=== PATIENT | female | born 1975 | race American Indian/Alaskan Native ===

== ENCOUNTER 2018-01-19 20:47 | Emergency (ER) | payer OTHER ==
[2018-01-19] MEDS ORDERED: Sodium Chloride 0.9% 1,000 ML IV STA (21:29)
[2018-01-19] MEDS ORDERED: Morphine 4 mg/ml ISec IVP STA ×2 (21:29→23:55)
--- NOTE | 2018-01-19 21:37 | ED PDOC ---
Arrival/HPI - General Chief Complaint: Back Pain Time Seen by Provider: 01/19/18 21:10 Historian: Patient - History of Present Illness Narrative History of Present Illness (Text): 01/19/18 21:37 A 43 year old female presents to the emergency department complaining of RUQ abdominal pain. Patient also reports back pain. Reports pain starts from the back and radiates to the front. Patient notes she ate cabbage and corn beef tonight. Patient denies any other complaints at this time. Symptom Onset: Sudden Symptom Course: Unchanged Activities at Onset: Rest Context: Home Past Medical History - Provider Review Nursing Documentation Reviewed: Yes - Cardiac Hx Hypertension: Yes - Pulmonary Hx Asthma: Yes - Neurological Hx Seizures: Yes Other/Comment: anurism 10.27.17 - Endocrine/Metabolic Hx Hyperthyroidism: Yes - Psychiatric Hx Anxiety: Yes Hx Substance Use: No - Anesthesia Hx Anesthesia Reactions: No Hx Malignant Hyperthermia: No Family/Social History - Physician Review Nursing Documentation Reviewed: Yes Family/Social History: No Known Family HX Smoking Status: Light Smoker < 10 Cigarettes Daily Hx Alcohol Use: No Hx Substance Use: No Allergies/Home Meds Allergies/Adverse Reactions: Allergies aspirin Adverse Reaction (Verified 01/19/18 21:17) NAUSEA Review of Systems - Physician Review All systems were reviewed & negative as marked: Yes - Review of Systems Gastrointestinal: Abdominal Pain (RUQ) Musculoskeletal: Back Pain Physical Exam Vital Signs Reviewed: Yes Vital Signs Temp Pulse Resp BP Pulse Ox 01/20/18 00:33 98.5 F 72 18 133/73 100 Appearance: Positive for: Well-Appearing, Non-Toxic, Comfortable Pain Distress: None Mental Status: Positive for: Alert and Oriented X 3 - Systems Exam Head: Present: Atraumatic, Normocephalic Pupils: Present: PERRL Extroacular Muscles: Present: EOMI Conjunctiva: Present: Normal Mouth: Present: Moist Mucous Membranes Neck: Present: Normal Range of Motion Respiratory/Chest: Present: Clear to Auscultation, Good Air Exchange. No: Respiratory Distress, Accessory Muscle Use Cardiovascular: Present: Regular Rate and Rhythm, Normal S1, S2. No: Murmurs Abdomen: Present: Tenderness (RUQ), Normal Bowel Sounds. No: Distention, Peritoneal Signs Back: Present: Normal Inspection Upper Extremity: Present: Normal Inspection. No: Cyanosis, Edema Lower Extremity: Present: Normal Inspection. No: Edema Neurological: Present: GCS=15, CN II-XII Intact, Speech Normal Skin: Present: Warm, Dry, Normal Color. No: Rashes Psychiatric: Present: Alert, Oriented x 3, Normal Insight, Normal Concentration Medical Decision Making ED Course and Treatment: 01/19/18 21:36 Impression: A 43 year old female with RUQ abdominal pain. Differential Diagnosis included but are not limited to: r/o gallstone, kidney stones Plan: -- Ultrasound abdomen -- labs -- Urinalysis -- CT abd/pelvis -- Morphine, IV fluids, Toradol, Zofran -- Reassess and disposition Progress Notes: US Abdomen Complete FINDINGS: Liver: . No mass. No intrahepatic bile duct dilation. Gallbladder: Gallbladder wall 0.27 cm. No gallstones. Common bile duct: Common bile duct 4 mm. No stones. No dilation. Pancreas: Unremarkable as visualized. Kidneys: Right kidney 10 x 4.6 x 6 cm. Left kidney 9.3 x 5.2 x 5.3 cm. Left renal cyst measures 1.4 x 1.3 cm. No stones. No hydronephrosis. Spleen: Spleen measures 10 cm. No splenomegaly. Aorta: . No aneurysm. Inferior vena cava: Unremarkable.. IMPRESSION: No acute findings. Dictated and Authenticated by: Talia Jones MD 01/19/2018 11:58 PM Eastern Time ([place] & [place]) 01/20/18 03:50 CT Abdomen and Pelvis Without Intravenous Contrast FINDINGS: Lower thorax: Trace dependent atelectatic changes in the lungs. ABDOMEN: Liver: Unremarkable. Gallbladder and bile ducts: Unremarkable. No calcified stones. No ductal dilation. Pancreas: Unremarkable. No ductal dilation. Spleen: Unremarkable. No splenomegaly. Adrenals: Unremarkable. No mass. Kidneys and ureters: Small left kidney cyst. No obstructing stones. No hydronephrosis. Stomach and bowel: Unremarkable. No obstruction. No mucosal thickening. Appendix: Normal appendix. PELVIS: Bladder: Unremarkable. No stones. Reproductive: Probable fibroid uterus. Right adnexal 3.3 cm cyst. ABDOMEN and PELVIS: Intraperitoneal space: Unremarkable. No free air. No significant fluid collection. Bones/joints: No acute fracture. No dislocation. Soft tissues: Unremarkable. Vasculature: Unremarkable. No abdominal aortic aneurysm. Lymph nodes: Unremarkable. No enlarged lymph nodes. IMPRESSION: No acute findings. Dictated and Authenticated by: Grady Navarro MD 01/20/2018 3:41 AM Eastern Time ([place] & [place]) - Lab Interpretations Lab Results: 01/19/18 21:50 01/19/18 21:50 Lab Results 01/19/18 22:09: Urine Color Yellow, Urine Appearance Clear, Urine pH 7.0, Ur Specific [place] 1.020, Urine Protein Negative, Urine Glucose (UA) Negative, Urine Ketones Trace H, Urine Blood Negative, Urine Nitrate Negative, Urine Bilirubin Negative, Urine Urobilinogen 0.2, Ur Leukocyte Esterase Negative 01/19/18 21:50: Sodium 141, Potassium 4.1, Chloride 107, Carbon Dioxide 28, Anion Gap 11, BUN 9, Creatinine 0.9, Est GFR ( Amer) > 60, Est GFR (Non- Af Amer) > 60, Random Glucose 96, Calcium 9.4, Total Bilirubin < 0.1 L, AST 21, ALT 24, Alkaline Phosphatase 68, Total Protein 7.5, Albumin 3.9, Globulin 3.6, Albumin/Globulin Ratio 1.1, Lipase 169 01/19/18 21:50: PT 11.6, INR 1.02 01/19/18 21:50: WBC 6.7, RBC 4.60, Hgb 8.4 L, Hct 29.0 L, MCV 63.0 L, MCH 18.3 L , MCHC 29.0 L, RDW 20.1 H, Plt Count 373, MPV 8.9, Gran % 50.8, Lymph % (Auto) 37.5 H, Spencer % (Auto) 6.8 H, Eos % (Auto) 4.2, Baso % (Auto) 0.7, Gran # 3.41, Lymph # (Auto) 2.5, Spencer # (Auto) 0.5, Eos # (Auto) 0.3, Baso # (Auto) 0.05 I have reviewed the lab results: Yes - RAD Interpretation Radiology Orders: 01/19/18 21:27 ABDOMEN COMPLETE [US] Stat 01/20/18 00:00 ABD & PELVIS W/O PO OR IV CONT [CT] Stat - Medication Orders Current Medication Orders: Simethicone (Mylicon Chew Tab) 80 mg PO PCHS PRN PRN Reason: GI distress Discontinued Medications Sodium Chloride (Sodium Chloride 0.9%) 1,000 mls @ 999 mls/hr IV .Q1H1M STA Stop: 01/19/18 22:29 Last Admin: 01/19/18 21:40 Dose: 999 mls/hr eMAR Start Stop Document 01/19/18 21:40 SRE (Rec: 01/19/18 22:09 SRE [id number]) Intravenous Solution Start Date 01/19/18 Start Time 21:40 End Date 01/19/18 End time 22:40 Total Infusion Time 60 Ketorolac Tromethamine (Toradol) 30 mg IVP STAT STA Stop: 01/19/18 21:30 Last Admin: 01/19/18 22:04 Dose: 30 mg MAR Pain Assessment Document 01/19/18 22:04 SRE (Rec: 01/19/18 22:04 SRE [id number]) Pain Reassessment Is this a pain reassessment? Yes Sleep Is patient sleeping during reassessment? Yes Pain Scale Used Pain Scale Used Numeric IVP Administration Document 01/19/18 22:04 SRE (Rec: 01/19/18 22:04 SRE [id number]) Charges for Administration # of IVP Administrations 1 Morphine Sulfate (Morphine) 4 mg IVP STAT STA Stop: 01/19/18 21:30 Last Admin: 01/19/18 22:04 Dose: 4 mg MAR Pain Assessment Document 01/19/18 22:04 SRE (Rec: 01/19/18 22:04 SRE [id number]) Pain Reassessment Is this a pain reassessment? Yes IVP Administration Document 01/19/18 22:04 SRE (Rec: 01/19/18 22:04 SRE [id number]) Charges for Administration # of IVP Administrations 1 Morphine Sulfate (Morphine) 4 mg IVP STAT STA Stop: 01/19/18 23:56 Last Admin: 01/20/18 00:26 Dose: 4 mg MAR Pain Assessment Document 01/20/18 00:26 MR (Rec: 01/20/18 00:26 MR [id number]) Pain Reassessment Is this a pain reassessment? Yes Sleep Is patient sleeping during reassessment? No Presence of Pain Presence of Pain Yes Pain Scale Used Pain Scale Used Numeric Location Left, Right or Bilateral Right Upper or Lower Lower Pain Location Body Site Back Description Description Constant Intensity of Pain at present 10 Pain Behavior Irritability Alleviating Factors/Management Medication Techniques IVP Administration Document 01/20/18 00:26 MR (Rec: 01/20/18 00:26 MR [id number]) Charges for Administration # of IVP Administrations 1 Ondansetron HCl (Zofran Inj) 4 mg IVP STAT STA Stop: 01/19/18 21:30 Last Admin: 01/19/18 22:04 Dose: 4 mg IVP Administration Document 01/19/18 22:04 SRE (Rec: 01/19/18 22:04 SRE [id number]) Charges for Administration # of IVP Administrations 1 Ondansetron HCl (Zofran Inj) 4 mg IVP STAT STA Stop: 01/19/18 23:56 Last Admin: 01/20/18 00:27 Dose: 4 mg IVP Administration Document 01/20/18 00:27 MR (Rec: 01/20/18 00:27 MR [id number]) Charges for Administration # of IVP Administrations 1 - Scribe Statement The provider has reviewed the documentation as recorded by the Wolfgang Reaves Provider Scribe Attestation: All medical record entries made by the Scribe were at my direction and personally dictated by me. I have reviewed the chart and agree that the record accurately reflects my personal performance of the history, physical exam, medical decision making, and the department course for this patient. I have also personally directed, reviewed, and agree with the discharge instructions and disposition. Disposition/Present on Arrival - Present on Arrival Any Indicators Present on Arrival: No History of DVT/PE: No History of Uncontrolled Diabetes: No Urinary Catheter: No History of Decub. Ulcer: No History Surgical Site Infection Following: None - Disposition Have Diagnosis and Disposition been Completed?: Yes Diagnosis: Abdominal pain Disposition: HOME/ ROUTINE Disposition Time: 03:59 Patient Plan: Discharge Condition: GOOD Discharge Instructions (ExitCare): Acute Abdomen (Belly Pain), Adult (DC) Additional Instructions: Mrs Johnson- All of your tests were normal. No Gallstone. No KidneyStone. No Infection. No Vascular Problem. Looks like this is bad gas pain. Use the Phazyme. Follow up with your doctor. Return to us if worse. Best- Dr. Dennis Willis Prescriptions: Simethicone [Phazyme] 250 mg PO TID #30 capsule Referrals: Ilda Jarvis MD [Primary Care Provider] - Follow up with primary Forms: [employer] (Mongolian)
[2018-01-19 22:16] LABS: URINE BILIRUBIN NEGATIVE (NEGATIVE); URINE BLOOD NEGATIVE (NEGATIVE); URINE GLUCOSE (UA) NEGATIVE (NEGATIVE); URINE LEUKOCYTE ESTERASE NEGATIVE Leu/uL (NEGATIVE); URINE PROTEIN NEGATIVE mg/dL (<30 mg/dL); URINE UROBILINOGEN 0.2 E.U./dL (<1 E.U./dL)
[2018-01-19 22:18] LABS: URINE APPEARANCE CLEAR (CLEAR); URINE COLOR YELLOW (YELLOW)
[2018-01-19 22:19] LABS: BASO # 0.05 K/mm3 (0.0-2.0); BASO % 0.7 % (0.0-3.0); EOS # 0.3 (0.0-0.7); EOS % 4.2 % (1.5-5.0); GRAN # 3.41 (1.4-6.5); GRAN % 50.8 % (50.0-68.0); HEMOGLOBIN 8.4 g/dL (12.0-16.0); LYMPH # 2.5 (1.2-3.4); LYMPH % 37.5 % (22.0-35.0); MEAN CORPUSCULAR HEMOGLOBIN 18.3 pg (25.0-35.0); MEAN PLATELET VOLUME 8.9 fl (7.0-11.0); MONO # 0.5 (0.1-0.6); MONO % 6.8 % (1.0-6.0); RBC 4.6 10^6/uL (3.5-6.1); RED CELL DISTRIBUTION WIDTH 20.1 % (11.5-14.5); WHITE BLOOD COUNT 6.7 10^3/ul (4.5-11.0)
[2018-01-19 22:20] LABS: ALB/GLOB RATIO 1.1 (1.1-1.8); ALBUMIN 3.9 g/dL (3.0-4.8); ALT/SGPT 24 U/L (7-56); AST/SGOT 21 U/L (14-36); BLOOD UREA NITROGEN 9 mg/dL (7-21); CALCIUM 9.4 mg/dL (8.4-10.5); GFR AFRICAN-AMERICAN > 60; GFR NON-AFRICAN AMERICAN > 60; LIPASE 169 U/L (23-300)
[2018-01-19 22:25] LABS: INR 1.02 (0.93-1.08); PROTHROMBIN TIME 11.6 SECONDS (9.4-12.5)
[2018-01-20 00:34] VITALS: RESP 18; TEMP 98.5
[2018-01-20] MEDS ORDERED: Simethicone 80 mg Chewtab PO PRN (03:57)
[2018-01-20 04:19] VITALS: BP 130/86; PULSE 61; O2SAT 99
--- NOTE | 2018-01-20 09:10 | CT ---
PROCEDURE: CT Abdomen and Pelvis without intravenous contrast HISTORY: Right Flank Pain, ? Kidney Stone COMPARISON: Abdomen ultrasound 01/19/2018 TECHNIQUE: Without con. Contrast Dose: 0 Radiation dose: Total exam DLP = Total exam DLP = 1110 mGy-cm. This CT exam was performed using one or more of the following dose reduction techniques: Automated exposure control, adjustment of the mA and/or kV according to patient size, and/or use of iterative reconstruction technique. FINDINGS: LOWER THORAX: Trace hypoventilatory and/or atelectatic changes lung bases posterior. No infiltrate LIVER: Unremarkable. No gross lesion or ductal dilatation. GALLBLADDER AND BILE DUCTS: Unremarkable. PANCREAS: Unremarkable. No gross lesion or ductal dilatation. SPLEEN: Unremarkable. ADRENALS: Unremarkable. No mass. KIDNEYS AND URETERS: No hydronephrosis. Or hydroureter No renal or ureteral calculi Left upper renal pole cyst suggested (better visualized on the 01/19/2018 abdominal ultrasound study) VASCULATURE: Unremarkable. No aortic aneurysm. BOWEL: . No obstruction. No gross mural thickening. Hyperdense material and/or few clips. Correlate clinically history states prior surgery details of which are not known APPENDIX: Unremarkable. Normal appendix. PERITONEUM: Unremarkable. No free fluid. No free air. LYMPH NODES: Unremarkable. No enlarged lymph nodes. BLADDER: Unremarkable. REPRODUCTIVE: Prominent uterus -fibroid involvement probable anterior superior 3.1 cm right adnexal cysts- ovarian cyst inferred Left ovary with normal more normal-appearing smaller follicles and more inferior and centrally positioned. BONES: No acute fracture. OTHER FINDINGS: Deep left ischial fossa fat nonspecific inflammatory changes -no fluid collection here appreciated. Findings are minimal and just inferior to the left ischial tuberosity. IMPRESSION: No renal ureteral or bladder calculi. No hydronephrosis or hydroureter. Incidental probable left renal approximately 1 cm cyst -better visualized on the ultrasound study from the day before High and anterior right adnexal approximately 3 cm cyst -ovarian origin inferred. Probable uterine fibroid involvement Comments: Preliminary report per Vrad compatible with this report.
--- NOTE | 2018-01-20 09:36 | US ---
HISTORY: Biliary Colic, ? Gallstone COMPARISON: None TECHNIQUE: Sonographic evaluation of the abdomen. FINDINGS: LIVER: Measures 16.4 cm. Normal echogenicity of the liver parenchyma. No mass. No intrahepatic bile duct dilatation. GALLBLADDER: Unremarkable. No gallstones. COMMON BILE DUCT: Measures 4 mm. No stones. No dilatation. PANCREAS: Unremarkable as visualized. No mass. No ductal dilatation. RIGHT KIDNEY: Measures 9.9 x 4.6 x 6.2cm. Normal echogenicity. No calculus, mass, or hydronephrosis. LEFT KIDNEY: Measures 9.3 x 5.2 x 5.3cm. Normal echogenicity. No calculus, no solid mass, or hydronephrosis. Left upper - mid pole junctional cortical cyst 1.4 x 0.9 x 1.3 cm SPLEEN: Normal in size and contour. No mass. AORTA: No aneurysmal dilatation. IVC: Unremarkable. OTHER FINDINGS: None. IMPRESSION: No gallbladder pathology noted Incidental left renal cortical cyst simple benign-appearing
== END 2018-01-20 04:23 | disposition home or self-care (01) ==
LOC: ED 20:47
DX: R10.11 Right upper quadrant pain (principal); I10 Essential (primary) hypertension; F17.210 Nicotine dependence, cigarettes, uncomplicated
CPT/HCPCS: 74176; 76700; 80053; 81003; 81025; 83690; 85025; 85610; 96361; 96374; 96375; 96376; 99284; J1885; J2270; J2405; J7040